=== PATIENT | female | born 1995 | race Caucasian/White ===

== ENCOUNTER 2017-01-10 19:29 | Emergency (ER) | payer SELFPAY ==
[2017-01-10 20:48] LABS: BASOPHIL % 0.2 % (0-2); PLATELET COUNT 398 x10^3mcL (130-400); RED CELL DISTRIBUTION WIDTH 13.8 % (11.5-14.5)
[2017-01-10 20:54] LABS: CARBON DIOXIDE 25.5 mmol/L (21-32); CHLORIDE SERUM 98 mmol/L (98-107); CREATININE SERUM 0.8 mg/dL (0.6-1.0); GFR1 > 60 mL/min; GLUCOSE SERUM 113 mg/dL (74-106); POTASSIUM SERUM 3.9 mmol/L (3.5-5.1); SODIUM SERUM 136 mmol/L (136-145)
[2017-01-10 20:59] LABS: ALBUMIN 3.5 g/dL (3.4-5.0); ALKALINE PHOSPHATASE 88 U/L (46-116); ALT/SGPT 18 U/L (14-59); AMYLASE 55 U/L (25-115); AST/SGOT 14 U/L (15-37); BILIRUBIN TOTAL 0.38 mg/dL (0.20-1.00); LIPASE 75 IU/L (73-393)
[2017-01-10 21:02] LABS: TOTAL PROTEIN, SERUM 8.9 g/dL (6.4-8.2)
[2017-01-10 21:25] LABS: microscopic required? YES; urine erythrocyte 2+ (NEGATIVE)
[2017-01-10 22:32] VITALS: BP 121/78
== END 2017-01-10 22:53 | disposition home or self-care (01) ==
LOC: ED 19:29
PROVIDERS: Emergency Medicine
DX: R10.9 Unspecified abdominal pain (principal); R30.9 Painful micturition, unspecified
CPT/HCPCS: 36415; J1170; J1885; Q0162